=== PATIENT | male | born 1985 | race Caucasian/White ===

== ENCOUNTER 2016-04-18 13:58 | Emergency (ER) | payer BC ==
--- NOTE | ~2016-04-18 | ER ---
PATIENT'S NAME: TAVO MALIK [facility] AGE: 30 Y [address] ROOM: [place] [id number] LOCATION: [facility] ADMIT DATE: 04/18/2016 ER/Outpatient Report DISCHARGE DATE: FAMILY PHYSICIAN: Tyson Rosales MD ATTENDING PHYSICIAN: eJsus Del Cid TIME OF ARRIVAL: 1405 hours. TIME OF EXAM: 1410 hours. CHIEF COMPLAINT: Headache and dizziness. HISTORY OF PRESENT ILLNESS: The patient states he had generalized headache on Monday and took some ibuprofen at different times. It never went away, but was not as severe until last night into today, he said the headache became worse. It is all on the right-side. About 11 o'clock this morning, he began feeling dizzy and nauseated, headache could be worse when he goes to do any kind of movement. Denies having an headache to this extent before. ALLERGIES: NO KNOWN ALLERGIES. MEDICATIONS: No regular medications. PAST MEDICAL HISTORY: Behcet autoimmune disease, past alcohol abuse, and past opioid abuse. PAST SURGERIES: Left shoulder. SOCIAL HISTORY: He lives at home with his and children. Does chew tobacco. Denies use of drugs or alcohol. REVIEW OF SYSTEMS: Negative other than those mentioned in the HPI. PHYSICAL EXAMINATION: VITAL SIGNS: He weighed 93 kg. Blood pressure is 138/84, pulse of 83, respirations 20, temp of 97.4, and O2 sat 95% on room air. PATIENT'S NAME: TAVO MALIK [facility] AGE: 30 Y [address] ROOM: [place] [address] LOCATION: [facility] ADMIT DATE: 04/18/2016 ER/Outpatient Report DISCHARGE DATE: FAMILY PHYSICIAN: Tyson Rosales MD ATTENDING PHYSICIAN: Jesus Del Cid GENERAL: He is awake, alert, and oriented x4. SKIN: [place], warm, and dry. RESPIRATIONS: Even and nonlabored. HEENT: Pupils are equal and reactive to light. Extraocular movement is intact. TMs are pearly white. Nasal is clear. Oropharynx is clear. NECK: Supple. No lymphadenopathy. LUNGS: Lung sounds are clear throughout. HEART: Regular rate and rhythm. EXTREMITIES: The patient moves all extremities strongly and equally. EMERGENCY DEPARTMENT COURSE: Saline lock was initiated. Lab work was drawn. CBC is within normal limits. Chem panel is within normal limits. CT of the head was completed. Radiologist reports no acute abnormalities. The patient was given fluids of normal saline, Toradol 30 mg IV, Benadryl 25 mg IV, and Compazine 10 mg IV. The patient states with the medications and the fluids that he is feeling much better. IMPRESSION: Headache. PLAN: Home, rest, fluids, Tylenol or ibuprofen as needed. Follow up with his primary provider if symptoms return or persist. He verbalized understanding. DYLAN LANGSTON APRN FOR MD MIKEY WESTBROOK/audelia /[id number] d: 04/18/16 2355 t: 04/20/16 0833, OUTPATIENT REPORT
[~2016-04-18 13:58] MED LIST: BENZOCAINE TOP; BOT MM; COLCHICINE0.6 M1 PO; GABAPENTIN100 MG; NICODERM/HABITR21 MG TRANS; TEGRETOL100 MG PO; TRAMADOL HCL50 MG PO; [UNRECOGNIZED DRUG - OTHER] MM
[2016-04-18 14:36] LABS: BASOPHIL # 0.1 K/uL (0.0-0.2); BASOPHIL % 0.7 %; EOSINOPHIL # 0.1 K/uL (0.0-0.5); EOSINOPHIL % 1.5 %; HEMATOCRIT 46.1 % (37.0-53.0); HEMOGLOBIN 15.5 g/dL (12.0-17.0); IMMATURE GRANULOCYTE % 0.4 %; LYMPHOCYTE # 1.9 K/uL (0.8-4.0); LYMPHOCYTE % 21.6 %; MCH 29.9 pg (27.0-34.0); MCHC 33.6 gm/dL (32.0-36.5); MONOCYTE # 0.6 K/uL (0.0-1.0); MONOCYTE % 6.6 %; MPV 9.1 fl (9.4-12.4); NEUTROPHIL # (ANC) 6.2 K/uL (1.4-9.0); NEUTROPHIL % 69.2 %; NRBC % 0 /100WBC (0-0.00); PLATELET COUNT 343 K/uL (150-450); RBC 5.18 M/uL (4.00-6.00); RDW-CV 11.9 % (11.9-14.6); WBC 8.9 K/uL (4.0-11.0)
[2016-04-18 14:47] LABS: PTT 28 SECONDS (25-32)
[2016-04-18 14:54] LABS: ALBUMIN 4.1 gm/dL (3.5-5.0); ALK PHOS 78 IU/L (33-138); ALT 42 IU/L (12-78); ANION GAP 12.6 (10.0-19.0); AST 25 IU/L (10-40); BLOOD UREA NITROGEN 13 mg/dL (6-24); CALCIUM 8.5 mg/dL (8.5-10.5); CHLORIDE 107 mMol/L (96-110); CO2 24 mMol/L (22-32); CREATININE 1.1 mg/dL (0.6-1.3); ESTIMATED GFR (MDRD EQUATION) > 60; POTASSIUM 3.6 mMol/L (3.7-5.1); SODIUM 140 mMol/L (135-145); TOTAL BILIRUBIN 0.4 mg/dL (0.0-1.5); TOTAL PROTEIN 7.9 g/dL (6.0-8.4)
== END 2016-04-18 16:35 | disposition disaster alternative care site (69) ==
LOC: GMED 13:58
PROVIDERS: Emergency Medicine
DX: R51 Headache (principal); F17.220 Nicotine dependence, chewing tobacco, uncomplicated
CPT/HCPCS: J0780; J1200; J1885; J7030